=== PATIENT | male | born 2000 | race Caucasian/White ===

== ENCOUNTER 2018-12-10 19:45 | Emergency (ER) | payer SELFPAY ==
[~2018-12-10] VITALS: Ht 188 cm; Wt 86.2 kg
[~2018-12-10 19:45] MED LIST: ACET1TAB43 PO; AGM875T PO; DEXT5SYR7 PO; LISD70CA3 PO; LORA10CA PO; METH4TAB PO; SODI88SP5 NS
--- OUTSIDE RECORDS SUMMARY | 2018-12-10 19:50 | XMS REPORT | Continuity of Care Document ---
Author Organization Unknown Address Unknown Allergies There is no data. Medications There is no data. Problems Date Dx Coded Attending Type Code Diagnosis Diagnosed By 05/19/2008 ISELA CR DDS N V58.69 MEDICATION HIGH RISK 05/19/2008 V58.69 MEDICATION HIGH RISK 06/03/2008 ISELA CR DDS N 788.1 DYSURIA 06/03/2008 788.1 DYSURIA 06/08/2008 ISELA CR DDS N 388.70 earache 06/08/2008 388.70 earache 07/07/2008 ISELA CR DDS N 296.80 MO BIPOLAR NOS 07/07/2008 296.80 MO BIPOLAR NOS 10/13/2008 ISELA RC DDS N 382.00 OTITIS MEDIA ACUTE SUPPURATIVE RIGHT EAR 10/13/2008 ISELA CR DDS N 461.9 SINUSITIS ACUTE 10/13/2008 ISELA CR DDS N 477.9 ALLERGIC RHINITIS 10/13/2008 382.00 OTITIS MEDIA ACUTE SUPPURATIVE RIGHT EAR 10/13/2008 461.9 SINUSITIS ACUTE 10/13/2008 477.9 ALLERGIC RHINITIS 11/12/2008 ISELA CR DDS N 564.00 CONSTIPATION CHRONIC 11/12/2008 ISELA CR DDS N 565.0 ANAL FISSURE 11/12/2008 564.00 CONSTIPATION CHRONIC 11/12/2008 565.0 ANAL FISSURE 12/31/2008 ISELA CR DDS N 465.9 UPPER RESPIRATORY INFECTION ACUTE 12/31/2008 ISELA CR DDS N 493.90 ASTHMA 12/31/2008 465.9 UPPER RESPIRATORY INFECTION ACUTE 12/31/2008 493.90 ASTHMA 02/07/2009 ISELA CR DDS N 922.2 CONTUSION WITH INTACT SKIN SURFACE - GROIN RIGHT 02/07/2009 922.2 CONTUSION WITH INTACT SKIN SURFACE - GROIN RIGHT 03/31/2009 ISELA CR DDS N V06.5 DT, TETANUS-DIPHTHERIA [Td] 03/31/2009 V06.5 DT, TETANUS- DIPHTHERIA [Td] 07/12/2009 ISELA CR DDS N 845.00 ANKLE SPRAIN LEFT 07/12/2009 845.00 ANKLE SPRAIN LEFT 12/03/2009 ISELA CR DDS N 132.0 LICE HEAD 12/03/2009 132.0 LICE HEAD 03/07/2010 ISELA CR DDS N 380.10 OTITIS EXTERNA 03/07/2010 380.10 OTITIS EXTERNA 03/14/2010 ISELA CR DDS N 314.01 ADHD COMBINED 03/14/2010 ISELA CR DDS N V20.2 WELL CHILD, ROUTINE 03/14/2010 314.01 ADHD COMBINED 03/14/2010 V20.2 WELL CHILD, ROUTINE 05/17/2010 ISELA CR DDS N 313.81 CD OPPOSITIONAL DEFIANT 05/17/2010 313.81 CD OPPOSITIONAL DEFIANT 07/07/2010 ISELA CR DDS N 110.5 DERMATOPHYTOSIS OF THE BODY 07/07/2010 110.5 DERMATOPHYTOSIS OF THE BODY 07/22/2010 ISELA CR DDS N V70.3 SPORTS/SCHOOL EXAM 07/22/2010 V70.3 SPORTS/SCHOOL EXAM 01/04/2012 ISELA CR DDS N 300.3 AN OBCESS COMP DIS 01/04/2012 300.3 AN OBCESS COMP DIS 07/18/2012 ISELA CR DDS N 719.46 KNEE PAIN 07/18/2012 ISELA CR DDS N 786.2 COUGH 07/18/2012 719.46 KNEE PAIN 07/18/2012 786.2 COUGH Procedures There is no data. Results There is no data. Encounters ACCT No. Visit Date/Time Discharge Status Pt. Type Provider Facility Loc./Unit Complaint [id number] 09/11/2012 13:02:00 09/11/2012 23:59:59 C[facility] Outpatient ISELA CR DDS [id number] 07/18/2012 13:10:00 07/18/2012 23:59:59 [facility] Outpatient
--- OUTSIDE RECORDS SUMMARY | 2018-12-10 19:50 | XMS REPORT ---
Author Author Migration, Doctor Organization [facility] Address Unknown Phone Unavailable Care Team Providers Care Search Engine Optimization Analyst Name Role Phone Migration, Doctor Unavailable Unavailable PROBLEMS Type Condition ICD9-CM Code [id number] Code Onset Dates Condition Status SNOMED Code Problem Pain in joint, lower leg 719.46 Active 826210665 Problem Obsessive-compulsive disorders 300.3 Active 803412088 Problem Cough 786.2 Active 70876728 ALLERGIES No Information ENCOUNTERS Encounter Location Date Diagnosis [facility] [id number] [place] [address] Jul, Encounter for immunization Z23 [facility] [id number] [place] [address] Dec, [facility] [id number] [place] [address] Dec, [facility] [id number] [place] [address] 4318 Oct, [facility] [id number] [place] [address] Oct, [facility] [id number] [place] [address] Oct, [facility] [id number] [place] [address] 9[address] Oct, [facility] [id number] [place] [address]- 4645 Sep, [facility] [id number] [place] [address] 3[address] Sep, [facility] [id number] [place] [address] 1330 Sep, [facility] [address] [place] [address] Sep, [facility] [address] [id number] [place] [address] Apr, [facility] [place] [facility] [address] [id number] [place] [address] Apr, [facility] [place] [facility] [address] [id number] [place] [address] 4[address] Jan, [facility] [place] [facility] [address] [id number] [place] [address] 65[address] Jan, [facility] [place] [facility] [address] [id number] [place] [address] Jul, [facility] [place] [facility] [address] [id number] [place] [address] 49[address] Jul, [facility] [address] [id number] [place] [address] 0104 Dec, [facility] [place] [facility] [address] [id number] [place] [address] Sep, [facility] [place] [facility] [address] [id number] [place] [address] 9309 Jul, [facility] [place] [facility] [address] [id number] [place] [address] 275[address] Jul, [facility] [place] [facility] [address] [id number] [place] [address]151 Mar, [facility] [place] [facility] [address] [id number] [place] [address] 1635 December, [facility] [place] [facility] [address] [id number] [place] [address] 1149 Dec, [facility] [place] [facility] [address] [id number] [place] [address]- 1665 15 Oct, 2010 [facility] [place] [facility] [address] [id number] [place] [address] 6[address] Aug, [facility] [place] [facility] [address] [id number] [place] [address] 8[address] 20 Jul, 2010 [facility] [address] [id number] [place] [address] 3464 05 Jul, 2010 [facility] [address] [id number] [place] [address] 4225 13 Mar, 2010 [facility] [address] [id number] [place] [address] 2717 10 Jul, 2009 [facility] [address] [id number] [place] [address]- 5707 10 Jul, 2009 [facility] [address] [id number] [place] [address]- 3527 13 Oct, 2008 [facility] [address] [id number] [place] [address] 5939 Oct, [facility] [address] [id number] [place] [address]69 Oct, [facility] [address] [id number] [place] [address] 5[address] Jul, [facility] [address] [id number], [place] [address] 17 May, 2008 [facility] [address] [id number] [place] [address] 2855 December, [facility] [address] [id number], [place] [address] 13 Jul, 2007 [facility] [place] [facility] [address] [id number] [place] [address]- 4239 14 Aug, 2006 [facility] [place] [facility] [address] [id number] [place] [address]- 9157 17 Jun, 2005 [facility] [place] [facility] [address] [id number], [place] [address] 8648 13 Dec, 2004 [facility] [place] [facility] [address] [id number], [place] [address] Oct, [facility] [address] [facility] [id number] [place] [address]- [address] Sep, [facility] [address] [facility] [id number] [place] [address] Aug, IMMUNIZATIONS No Known Immunizations SOCIAL HISTORY Never Assessed REASON FOR VISIT EMR-[facility] PLAN OF CARE VITAL SIGNS MEDICATIONS Medication Instructions Dosage Frequency Start Date End Date Duration Status Ulesfia 5 % 1 tad by Topical route 1 time per week for 2 dose(s) Mar Active RESULTS No Results PROCEDURES No Known procedures INSTRUCTIONS MEDICATIONS ADMINISTERED No Known Medications
--- OUTSIDE RECORDS SUMMARY | 2018-12-10 19:50 | XMS REPORT ---
Author Author SAGRARIO SMILEY Organization [employer] Address Unknown Phone Unavailable Care Team Providers Care Margarine Maker Name Role Phone SAGRARIO SMILEY CP Unavailable Allergies No Known Allergies Problems Problem Type Condition Code Onset Dates Condition Status Problem Cough 786.2 Active Problem Pain in joint, lower leg 719.46 Active Problem Obsessive-compulsive disorders 300.3 Active Assessment Encounter for immunization Z23 Active Medications No Known Medications Procedures Procedure Coding System Code Date VARICELLA CPT-4 56745 Jul 26, 2015 SINGLE IMMUNIZATION ADMIN CPT-4 81957 Jul 26, 2015 MENINGOCOCCAL (MENVEO) CPT-4 14702 Jul 26, 2015 IMMUNIZATION ADMIN, EACH ADD (please include units) CPT-4 24942 Jul 26, 2015 Results No Known Results Immunizations Vaccine Administration Date MENINGOCOCCAL (MENVEO) Jul 26, 2015 VARICELLA Jul 26, 2015 Summary Purpose [employer] Submission
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
[2018-12-10 20:10] VITALS: BP 137/82
--- NOTE | 2018-12-10 20:29 | Diagnostic Imaging Report ---
INDICATION: Fell, right wrist pain FINDINGS: 3 views of the right wrist demonstrate normal ossification. No fracture or dislocation is present. IMPRESSION: Normal right wrist. Dictated by: Dictated on workstation # [id number]
== END 2018-12-10 20:10 | disposition home or self-care (01) ==
LOC: EDUNIT# 19:45 → ER 19:46
DX: S63.501A Unspecified sprain of right wrist, initial encounter (principal); W18.30XA Fall on same level, unspecified, initial encounter; Y93.72 Activity, wrestling
CPT/HCPCS: 73110; 99282

== ENCOUNTER 2019-11-03 22:38 | Emergency (ER) | payer SELFPAY ==
[~2019-11-03] VITALS: Ht 187.9 cm; Wt 95.2 kg
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
[2019-11-03 23:45] VITALS: BP 142/85
--- OUTSIDE RECORDS SUMMARY | 2019-11-09 05:11 | XMS REPORT ---
Author Author Eliot CANDELARIO [facility] Address [address] [place] [address] Care Team Providers Care Oxyacetylene Cutter Name Role Phone ANDREEANTONIAAN Unavailable PROBLEMS Type Condition ICD9-CM Code [id number] Code Onset Dates Condition S tatus SNOMED Code Problem Pain in joint, lower leg 719.46 Activ e 567441472 Problem Obsessive-compulsive disorders 300.3 Active 825763132 Problem Cough 786.2 Active 23343952 ALLERGIES No Information ENCOUNTERS Encounter Location Date Diagnosis [facility] [address] [address] Jul, Encounter for immunization Z23 [facility] [address] [address] Dec, [facility] [address] [address] Dec, [facility] [address] [address] Oct, [facility] [address] [address] Oct, [facility] [address] [address] Oct, [facility] [address] [address] Oct, [facility] [address] [address] Sep, [facility] [address] [address] Sep, [facility] [address] [address] Sep, [facility] [place] [facility] [address] [id number] [place] [address] Sep, [facility] [place] [facility] [address] [id number] [place] [address] Apr, [facility] [place] [facility] [address] [id number] [place] [address] Apr, [facility] [place] [facility] [id number] [place] [address] Jan, [facility] [place] [facility] [address] [id number] [place] [address] Jan, [facility] [place] [facility] [address] [id number] [place] [address] Jul, [facility] [place] [facility] [address] [id number] [place] [address] Jul, [facility] [place] [facility] [address] [id number] [place] [address] Dec, [facility] [place] [facility] [address] [id number] [place] [address] Sep, [facility] [place] [facility] [address] [id number] [place] [address] Jul, [facility] [place] [facility] [id number] [place] [address] Jul, [facility] [place] [facility] [address] [id number] [place] [address] Mar, [facility] [place] [facility] [address] [id number] [place] [address] December, [facility] [place] [facility] [address] [id number] [place] [address] Dec, [facility] [place] [facility] [id number] [place] [address] Oct, [facility] [place] [facility] [address] [id number] [place] [address] Aug, [facility] [place] [facility] [address] [id number] [place] [address] 20 Jul, 2010 [facility] [address] [id number] [place] [address] 05 Jul, 2010 [facility] [place] [facility] [address] [id number] [place] [address] 13 Mar, 2010 [facility] [place] [facility] [address] [id number] [place] [address] 10 Jul, 2009 [facility] [place] [facility] [address] [id number] [place] [address] 10 Jul, 2009 [facility] [place] [facility] [address] [id number] [place] [address] 13 Oct, 2008 [facility] [place] [facility] [address] [id number] [place] [address] 12 Oct, 2008 [facility] [place] [facility] [address] [id number] [place] [address] Oct, [facility] [place] [facility] [address] [id number] [place] [address] 05 Jul, 2008 [facility] [place] [facility] [address] [id number] [place] [address] 17 May, 2008 [facility] [place] [facility] [address] [id number] [place] [address] December, [facility] [place] [facility] [address] [id number] [place] [address] 13 Jul, 2007 [facility] [place] [facility] [address] [id number] [place] [address] 14 Aug, 2006 [facility] [place] [facility] [address] [id number] [place] [address] 17 Jun, 2005 [facility] [place] [facility] [address] [id number] [place] [address] 13 Dec, 2004 [facility] [place] [facility] [address] [id number] [place] [address] 15 Oct, 2004 [facility] [place] [facility] [address] [id number] [place] [address] 13 Sep, 2004 [facility] [place] [facility] [address] [id number] [place] [address] 16 Aug, 2004 IMMUNIZATIONS No Known Immunizations SOCIAL HISTORY Never Assessed REASON FOR VISIT PLAN OF CARE VITAL SIGNS MEDICATIONS Unknown Medications RESULTS No Results PROCEDURES No Known procedures INSTRUCTIONS MEDICATIONS ADMINISTERED No Known Medications
--- OUTSIDE RECORDS SUMMARY | 2019-11-09 05:12 | XMS REPORT ---
Author Author Eliot CANDELARIO [facility] Address [address] [place] [address] Care Team Providers Care Retail Personal Banker Name Role Phone ANDREEANTONIAAN Unavailable PROBLEMS Type Condition ICD9-CM Code [id number] Code Onset Dates Condition S tatus SNOMED Code Problem Pain in joint, lower leg 719.46 Activ e 386604281 Problem Obsessive-compulsive disorders 300.3 Active 808294680 Problem Cough 786.2 Active [id number] ALLERGIES No Information ENCOUNTERS Encounter Location Date Diagnosis [facility] [address] [facility] [id number] [address] [place] [phone] Jul, Encounter for immunization Z 23 [facility] [address] [id number] [address] [place] [address] Dec, [facility] [address] [id number] [address] [place] [phone] Dec, [facility] [address] [facility] [id number] [address] [place] [address] Oct, [facility] [address] [facility] [id number] [address] [place] [address] Oct, [facility] [address] [id number] [address] [place] [address] Oct, [facility] [address] [id number] [address] [place] [phone] Oct, [facility] [address] [facility] [id number] [address] [place] [phone] Sep, [facility] [address] [facility] [id number] [address] [place] [address] Sep, [facility] [address] [id number] [address] [place] [address], [place] [address] Sep, [facility] [address] [id number] [address] [place] [address], [place] [address] Sep, [facility] [address] [id number] [address] [place] [address], [place] [address] Apr, [facility] [address] [id number] [address] [place] [address], [place] [address] Apr, [facility] [address] [id number] [address] [place] [address], [place] [address] Jan, [facility] [address] [id number] [address] [place] [address], [place] [address] Jan, [facility] [address] [id number] [address] [place] [address], [place] [address] Jul, [facility] [address] [id number] [address] [place] [address], [place] [address] Jul, [facility] [address] [id number] [address] [place] [address], [place] [address] Dec, [facility] [address] [id number] [address] [place] [address], [place] [address] Sep, [facility] [address] [id number] [address] [place] [address], [place] [address] Jul, [facility] [address] [id number] [address] [place] [address], [place] [address] Jul, [facility] [address] [id number] [address] [place] [address], [place] [address] Mar, [facility] [address] [id number] [address] [place] [address], [place] [address] December, [facility] [address] [id number] [address] [place] [address], [place] [address] Dec, [facility] [address] [id number] [address] [place] [address], [place] [address] Oct, [facility] [address] [id number] [address] [place] [address], [place] [address] 07 Aug, 2010 [facility] [address] [id number] [address] [place] [address], [place] [address] 20 Jul, 2010 [facility] [address] [id number] [address] [place] [address], [place] [address] 05 Jul, 2010 [facility] [address] [id number] [address] [place] [address], [place] [address] 13 Mar, 2010 [facility] [address] [id number] [address] [place] [address], [place] [address] 10 Jul, 2009 [facility] [address] [id number] [address] [place] [address], [place] [address] 10 Jul, 2009 [facility] [address] [id number] [address] [place] [address], [place] [address] 13 Oct, 2008 [facility] [address] [id number] [address] [place] [address], [place] [address] Oct, [facility] [address] [id number] [address] [place] [address], [place] [address] Oct, [facility] [address] [id number] [address] [place] [address], [place] [address] 05 Jul, 2008 [facility] [address] [id number] [address] [place] [address], [place] [address] 17 May, 2008 [facility] [address] [id number] [address] [place] [address], [place] [address] December, [facility] [address] [id number] [address] [place] [address], [place] [address] 13 Jul, 2007 [facility] [address] [id number] [address] [place] [address], [place] [address] 14 Aug, 2006 [facility] [address] [id number] [address] [place] [address], [place] [address] 17 Jun, 2005 [facility] [address] [id number] [place] [address] 13 Dec, 2004 [facility] [address] [facility] [id number] [address] [place] [address] 15 Oct, 2004 [facility] [address] [facility] [id number] [address] [place] [address] 13 Sep, 2004 [facility] [address] [facility] [id number] [address] [place] [address] 16 Aug, 2004 IMMUNIZATIONS No Known Immunizations SOCIAL HISTORY Never Assessed REASON FOR VISIT PLAN OF CARE VITAL SIGNS MEDICATIONS Unknown Medications RESULTS No Results PROCEDURES No Known procedures INSTRUCTIONS MEDICATIONS ADMINISTERED No Known Medications
--- OUTSIDE RECORDS SUMMARY | 2019-11-09 05:12 | XMS REPORT ---
Author Author Eliot Perez [facility] Address [address] [place] [address] Care Team Providers Care Parts Fabricator Name Role Phone SARGARIO Perez Unavailable PROBLEMS Type Condition ICD9-CM Code [id number] Code Onset Dates Condition S tatus SNOMED Code Problem Pain in joint, lower leg 719.46 Activ e 669473889 Problem Obsessive-compulsive disorders 300.3 Active 497508298 Problem Cough 786.2 Active 78068173 ALLERGIES No Information ENCOUNTERS Encounter Location Date Diagnosis [facility] [id number] [place] [address] Jul, Encounter for immunization Z 23 [facility] [address] [facility] [id number] [address] [place] [address] 14 Dec, 2014 [facility] [address] [facility] [id number] [address] [place] [address] Dec, [facility] [address] [place] [address] Oct, [facility] [address] [place] [address] Oct, [facility] [address] [place] [id number] [address] [place] [address] Oct, [facility] [address] [facility] [id number] [address] [place] [address] Oct, [facility] [address] [place] [id number] [address] [place] [address] Sep, [facility] [address] [place] [id number] [address] [place] [address] Sep, [facility] [address] [id number] [address] [place] [address], [place] [address] Sep, [facility] [address] [id number] [address] [place] [address], [place] [address] Sep, [facility] [address] [id number] [address] [place] [address], [place] [address] Apr, [facility] [address] [id number] [address] [place] [address], [place] [address] Apr, [facility] [address] [id number] [address] [place] [address], [place] [address] Jan, [facility] [address] [id number] [address] [place] [address], [place] [address] Jan, [facility] [address] [id number] [address] [place] [address], [place] [address] Jul, [facility] [address] [id number] [address] [place] [address], [place] [address] Jul, [facility] [address] [id number] [address] [place] [address], [place] [address] Dec, [facility] [address] [id number] [address] [place] [address], [place] [address] Sep, [facility] [address] [id number] [address] [place] [address], [place] [address] Jul, [facility] [address] [id number] [address] [place] [address], [place] [address] Jul, [facility] [address] [id number] [address] [place] [address], [place] [address] Mar, [facility] [address] [id number] [address] [place] [address], [place] [address] December, [facility] [address] [id number] [address] [place] [address], [place] [address] Dec, [facility] [address] [id number] [address] [place] [address], [place] [address] 15 Oct, 2010 [facility] [address] [id number] [address] [place] [address], [place] [address] 07 Aug, 2010 [facility] [address] [id number] [address] [place] [address], [place] [address] 20 Jul, 2010 [facility] [address] [id number] [address] [place] [address], [place] [address] 05 Jul, 2010 [facility] [address] [id number] [address] [place] [address], [place] [address] 13 Mar, 2010 [facility] [address] [id number] [address] [place] [address], [place] [address] 10 Jul, 2009 [facility] [address] [id number] [address] [place] [address], [place] [address] 10 Jul, 2009 [facility] [address] [id number] [address] [place] [address], [place] [address] 13 Oct, 2008 [facility] [address] [id number] [address] [place] [address] 12 Oct, 2008 [facility] [address] [id number] [address] [place] [address], [place] [address] 11 Oct, 2008 [facility] [address] [id number] [address] [place] [address] 05 Jul, 2008 [facility] [address] [id number] [address] [place] [address], [place] [address] 17 May, 2008 [facility] [address] [id number] [address] [place] [address] December, [facility] [address] [id number] [address] [place] [address], [place] [address] 13 Jul, 2007 [facility] [address] [id number] [address] [place] [address] 14 Aug, 2006 [facility] [address] [id number] [address] [place] [address], [place] [address] 17 Jun, 2005 [facility] [address] [id number] [address] [place] [address] 13 Dec, 2004 [facility] [address] [facility] [id number] [address] [place] [address] 15 Oct, 2004 [facility] [address] [facility] [id number] [address] [place] [address] Sep, [facility] [address] [facility] [id number] [address] [place] [address] Aug, IMMUNIZATIONS No Known Immunizations SOCIAL HISTORY Never Assessed REASON FOR VISIT PLAN OF CARE VITAL SIGNS Height 70 in 2014-11-03 Weight 171 lbs 2014-11-03 Temperature 98 degrees Fahrenheit 2014-11-03 Heart Rate 92 bpm 2014-11-03 Respiratory Rate 22 2014-11-03 Blood pressure systolic 118 mmHg 2014-11-03 Blood pressure diastolic 74 mmHg 2014-11-03 MEDICATIONS Unknown Medications RESULTS No Results PROCEDURES No Known procedures INSTRUCTIONS MEDICATIONS ADMINISTERED No Known Medications
--- OUTSIDE RECORDS SUMMARY | 2019-11-09 05:12 | XMS REPORT | Continuity of Care Document ---
Author Organization Unknown Address Unknown Phone Unavailable Allergies There is no data. Medications There is no data. Problems Date Dx Coded Attending Type Code Diagnosis Diagnosed By 05/19/2008 ISELA CR DDS V58.69 MEDICATION HIGH RISK 05/19/2008 V58.69 MED ICATION HIGH RISK 06/03/2008 ISELA CR DDS N 788.1 DYSURIA 06/03/2008 788.1 DYSURIA 06/08/2008 ISELA CR DDS N 388.70 earache 06/08/2008 388.70 earache 07/07/2008 ISELA CR DDS N 296.80 MO BIPOLAR NOS 07/07/2008 296.80 MO BIPOLAR NOS 10/13/2008 ISELA CR DDS N 382.00 OTITIS MEDIA ACUTE SUPPURATIVE RIGHT EAR 10/13/2008 ISELA CR DDS N 461.9 SINUSITIS ACUTE 10/13/2008 ISELA CR DDS N 477.9 ALLERGIC RHINITIS 10/13/2008 382.00 TREV TIS MEDIA ACUTE SUPPURATIVE RIGHT EAR 10/13/2008 461.9 SINU SITIS ACUTE 10/13/2008 477.9 ALEXEY RGIC RHINITIS 11/12/2008 ISE[facility] CR DDS N 564.00 CONSTIPATION CHRONIC 11/12/2008 ISELA CR DDS N 565.0 ANAL FISSURE 11/12/2008 564.00 CON STIPATION CHRONIC 11/12/2008 565.0 ANAL FISSURE 12/31/2008 ISE[facility] CR DDS N 465.9 UPPER RESPIRATORY INFECTION ACUTE 12/31/2008 ISE[facility] CR DDS N 493.90 ASTHMA 12/31/2008 465.9 UPPE R RESPIRATORY INFECTION ACUTE 12/31/2008 493.90 ASTHMA 02/07/2009 ISELA CR DDS N 922.2 CONTUSION WITH INTACT SKIN SURFACE - GROIN RIGHT 02/07/2009 922.2 CONT USION WITH INTACT SKIN SURFACE - GROIN RIGHT 03/31/2009 ISELA CR DDS N V06.5 DT, TETANUS-DIPHTHERIA [Td] 03/31/2009 V06.5 DT, TETANUS- DIPHTHERIA [Td] 07/12/2009 I[facility] CR DDS N 845.00 ANKLE SPRAIN LEFT 07/12/2009 845.00 ANK LE SPRAIN LEFT 12/03/2009 I[facility] CR DDS N 132.0 LICE HEAD 12/03/2009 132.0 LICE HEAD 03/07/2010 ISE[facility] CR DDS N 380.10 OTITIS EXTERNA 03/07/2010 380.10 TREV TIS EXTERNA 03/14/2010 ISE[facility] CR DDS N 314.01 ADHD COMBINED 03/14/2010 ISE[facility] CR DDS N V20.2 WELL CHILD, ROUTINE 03/14/2010 314.01 ADH D COMBINED 03/14/2010 V20.2 WELL CHILD, ROUTINE 05/17/2010 ISE[facility] CR DDS N 313.81 CD OPPOSITIONAL DEFIANT 05/17/2010 313.81 CD OPPOSITIONAL DEFIANT 07/07/2010 ISE[facility] CR DDS N 110.5 DERMATOPHYTOSIS OF THE BODY 07/07/2010 110.5 DERM ATOPHYTOSIS OF THE BODY 07/22/2010 ISE[facility] CR DDS V70.3 SPORTS/SCHOOL EXAM 07/22/2010 V70.3 SPOR TS/SCHOOL EXAM 01/04/2012 ISE[facility] CR DDS N 300.3 AN OBCESS COMP DIS 01/04/2012 300.3 AN O BCESS COMP DIS 07/18/2012 ISELA CR DDS 719.46 KNEE PAIN 07/18/2012 ISELA CR DDS 786.2 COUGH 07/18/2012 719.46 KNE E PAIN 07/18/2012 786.2 COUGH Procedures There is no data. Results There is no data. Encounters ACCT No. Visit Date/Time Discharge Status Pt. Type Provider Facility Loc./Unit Complaint [id number] 09/11/2012 13:02:00 09/11/2012 23:59: 59 CLS Outpatient ISE[facility] CR DDS [id number] 07/18/2012 13:10:00 07/18/2012 23:59:5 9 CLS Outpatient
--- OUTSIDE RECORDS SUMMARY | 2019-11-09 05:12 | XMS REPORT ---
Author Author Eliot Marley Doctor Organization [facility] Address Unknown Phone Unavailable Care Team Providers Care Transmission Systems Operator Name Role Phone Migration, Doctor Unavailable Unavailable PROBLEMS Type Condition ICD9-CM Code [id number] Code Onset Dates Condition S tatus SNOMED Code Problem Pain in joint, lower leg 719.46 Activ e 044619887 Problem Obsessive-compulsive disorders 300.3 Active 664498702 Problem Cough 786.2 Active 23831246 ALLERGIES No Information ENCOUNTERS Encounter Location Date Diagnosis [facility] [address] [facility] [id number] [address] [place] [address] Jul, Encounter for immunization Z 23 [facility] [address] [facility] [id number] [address] [place] [address] Dec, [facility] [address] [facility] [id number] [address] [place] [address] Dec, [facility] [address] [facility] [id number] [address] [place] [address] Oct, [facility] [address] [place] [id number] [address] [place] [address] Oct, [facility] [address] [facility] [id number] [address] [place] [address] Oct, [facility] [address] [facility] [id number] [address] [place] [address] Oct, [facility] [address] [facility] [id number] [address] [place] [address] Sep, [facility] [address] [facility] [id number] [address] [place] [address] Sep, [facility] [address] [facility] [id number] [address] [place] [address] Sep, [facility] [address] [id number] [address] [place] [address], [place] [address] Sep, [facility] [address] [id number] [address] [place] [address], [place] [address] Apr, [facility] [address] [id number] [address] [place] [address], [place] [address] Apr, [facility] [address] [id number] [address] [place] [address], [place] [address] Jan, [facility] [address] [id number] [address] [place] [address], [place] [address] Jan, [facility] [address] [id number] [address] [place] [address], [place] [address] Jul, [facility] [address] [id number] [address] [place] [address], [place] [address] Jul, [facility] [address] [id number] [address] [place] [address], [place] [address] Dec, [facility] [address] [id number] [address] [place] [address], [place] [address] Sep, [facility] [address] [id number] [address] [place] [address], [place] [address] Jul, [facility] [address] [id number] [address] [place] [address], [place] [address] Jul, [facility] [address] [id number] [address] [place] [address], [place] [address] Mar, [facility] [address] [id number] [address] [place] [address], [place] [address] December, [facility] [address] [id number] [address] [place] [address], [place] [address] Dec, [facility] [address] [id number] [address] [place] [address], [place] [address] 15 Oct, 2010 [facility] [address] [id number] [address] [place] [address], [place] [address] Aug, [facility] [address] [id number] [address] [place] [address], [place] [address] 20 Jul, 2010 [facility] [address] [id number] [address] [place] [address], [place] [address] 05 Jul, 2010 [facility] [address] [id number] [address] [place] [address], [place] [address] 13 Mar, 2010 [facility] [address] [id number] [address] [place] [address], [place] [address] 10 Jul, 2009 [facility] [address] [id number] [address] [place] [address], [place] [address] 10 Jul, 2009 [facility] [address] [id number] [address] [place] [address], [place] [address] 13 Oct, 2008 [facility] [address] [id number] [address] [place] [address], [place] [address] Oct, [facility] [address] [id number] [address] [place] [id number] 11 Oct, 2008 [facility] [address] [id number] [address] [place] [address], [place] [address] Jul, [facility] [address] [id number] [address] [place] [id number] 17 May, 2008 [facility] [address] [id number] [address] [place] [address], [place] [address] December, [facility] [address] [id number] [address] [place] [id number] 13 Jul, 2007 [facility] [address] [id number] [address] [place] [address], [place] [address] 14 Aug, 2006 [facility] [address] [id number] [address] [place] [id number] 17 Jun, 2005 [facility] [address] [id number] [address] [place] [address], [place] [address] 13 Dec, 2004 [facility] [address] [id number] [address] [place] [id number] 15 Oct, 2004 [facility] [address] [facility] [id number] [address] [place] [id number] 13 Sep, 2004 [facility] [address] [facility] [id number] [address] [place] [id number] 16 Aug, 2004 IMMUNIZATIONS No Known Immunizations SOCIAL HISTORY Never Assessed REASON FOR VISIT EMR-[facility] [place] PLAN OF CARE VITAL SIGNS MEDICATIONS Unknown Medications RESULTS No Results PROCEDURES No Known procedures INSTRUCTIONS MEDICATIONS ADMINISTERED No Known Medications
--- OUTSIDE RECORDS SUMMARY | 2019-11-09 05:12 | XMS REPORT ---
Author Author Eliot Marley Doctor Organization [facility] Address Unknown Phone Unavailable Care Team Providers Care Desulfurizer Hand Name Role Phone Migration, Doctor Unavailable Unavailable PROBLEMS Type Condition ICD9-CM Code [id number] Code Onset Dates Condition S tatus SNOMED Code Problem Pain in joint, lower leg 719.46 Activ e 005332291 Problem Obsessive-compulsive disorders 300.3 Active 247708693 Problem Cough 786.2 Active [id number] ALLERGIES No Information ENCOUNTERS Encounter Location Date Diagnosis [facility] [address] [facility] [id number] [address] [place] [address] Jul, Encounter for immunization Z 23 [facility] [address] [facility] [id number] [address] [place] [id number] Dec, [facility] [address] [facility] [id number] [address] [place] [phone] Dec, [facility] [address] [facility] [id number] [address] [place] [address] Oct, [facility] [address] [place] [id number] [address] [place] [address] Oct, [facility] [address] [facility] [id number] [address] [place] [address] Oct, [facility] [address] [facility] [id number] [address] [place] [address] Oct, [facility] [address] [facility] [id number] [address] [place] [address] Sep, [facility] [address] [facility] [id number] [address] [place] [address] Sep, [facility] [address] [facility] [id number] [address] [place] [phone] Sep, [facility] [address] [id number] [address] [place] [address], [place] [address] Sep, [facility] [address] [id number] [address] [place] [address], [place] [address] Apr, [facility] [address] [id number] [address] [place] [address], [place] [address] Apr, [facility] [address] [id number] [address] [place] [address], [place] [address] Jan, [facility] [address] [id number] [address] [place] [address], [place] [address] Jan, [facility] [address] [id number] [address] [place] [address], [place] [address] Jul, [facility] [address] [id number] [address] [place] [address], [place] [address] Jul, [facility] [address] [id number] [address] [place] [address], [place] [address] Dec, [facility] [address] [id number] [address] [place] [address], [place] [address] Sep, [facility] [address] [id number] [address] [place] [address], [place] [address] Jul, [facility] [address] [id number] [address] [place] [address], [place] [address] Jul, [facility] [address] [id number] [address] [place] [address], [place] [address] Mar, [facility] [address] [id number] [address] [place] [address], [place] [address] December, [facility] [address] [id number] [address] [place] [address], [place] [address] Dec, [facility] [address] [id number] [address] [place] [address], [place] [address] 15 Oct, 2010 [facility] [address] [id number] [address] [place] [address], [place] [address] Aug, [facility] [address] [id number] [address] [place] [address], [place] [address] 20 Jul, 2010 [facility] [address] [id number] [address] [place] [address], [place] [address] 05 Jul, 2010 [facility] [address] [id number] [address] [place] [address], [place] [address] 13 Mar, 2010 [facility] [address] [id number] [address] [place] [address], [place] [address] 10 Jul, 2009 [facility] [address] [id number] [address] [place] [address], [place] [address] 10 Jul, 2009 [facility] [address] [id number] [address] [place] [address], [place] [address] 13 Oct, 2008 [facility] [address] [id number] [address] [place] [address], [place] [address] Oct, [facility] [address] [id number] [address] [place] [address] 11 Oct, 2008 [facility] [address] [id number] [address] [place] [address], [place] [address] Jul, [facility] [address] [id number] [address] [place] [address] 17 May, 2008 [facility] [address] [id number] [address] [place] [address], [place] [address] December, [facility] [address] [id number] [address] [place] [address] 13 Jul, 2007 [facility] [address] [id number] [address] [place] [address], [place] [address] 14 Aug, 2006 [facility] [address] [id number] [address] [place] [address] 17 Jun, 2005 [facility] [address] [id number] [address] [place] [address], [place] [address] 13 Dec, 2004 [facility] [address] [id number] [address] [place] [id number] 15 Oct, 2004 [facility] [address] [facility] [id number] [address] [place] [id number] 13 Sep, 2004 [facility] [address] [facility] [id number] [address] [place] [phone] 16 Aug, 2004 IMMUNIZATIONS No Known Immunizations SOCIAL HISTORY Never Assessed REASON FOR VISIT EMR-[facility] PLAN OF CARE VITAL SIGNS MEDICATIONS Unknown Medications RESULTS No Results PROCEDURES No Known procedures INSTRUCTIONS MEDICATIONS ADMINISTERED No Known Medications
--- OUTSIDE RECORDS SUMMARY | 2019-11-09 05:12 | XMS REPORT ---
Author Author Eliot CANDELARIO [facility] Address [address] [place] [address] Care Team Providers Care Field Mechanic/Site Lead Name Role Phone ANDREEANTONIAAN Unavailable PROBLEMS Type Condition ICD9-CM Code GEY86-NT Code Onset Dates Condition S tatus SNOMED Code Problem Pain in joint, lower leg 719.46 Activ e [id number] Problem Obsessive-compulsive disorders 300.3 Active [id number] Problem Cough 786.2 Active [id number] ALLERGIES No Information ENCOUNTERS Encounter Location Date Diagnosis [facility] [address] [facility] [id number] [address] [place] [address] Jul, Encounter for immunization Z 23 [facility] [address] [id number] [address] [place] [phone] Dec, [facility] [address] [id number] [address] [place] [phone] Dec, [facility] [address] [facility] [id number] [address] [place] [address] Oct, [facility] [address] [facility] [id number] [address] [place] [phone] Oct, [facility] [address] [id number] [address] [place] [phone] Oct, [facility] [address] [facility] [id number] [address] [place] [phone] Oct, [facility] [address] [facility] [id number] [address] [place] [phone] Sep, [facility] [address] [facility] [id number] [address] [place] [phone] Sep, [facility] [address] [id number] [address] [place] [address], [place] [address] Sep, [facility] [address] [id number] [address] [place] [address], [place] [address] Sep, [facility] [address] [id number] [address] [place] [address], [place] [address] Apr, [facility] [address] [id number] [address] [place] [address], [place] [address] Apr, [facility] [address] [id number] [address] [place] [address], [place] [address] Jan, [facility] [address] [id number] [address] [place] [address], [place] [address] Jan, [facility] [address] [id number] [address] [place] [address], [place] [address] Jul, [facility] [address] [id number] [address] [place] [address], [place] [address] Jul, [facility] [address] [id number] [address] [place] [address], [place] [address] Dec, [facility] [address] [id number] [address] [place] [address], [place] [address] Sep, [facility] [address] [id number] [address] [place] [address], [place] [address] Jul, [facility] [address] [id number] [address] [place] [address], [place] [address] Jul, [facility] [address] [id number] [address] [place] [address], [place] [address] Mar, [facility] [address] [id number] [address] [place] [address], [place] [address] December, [facility] [address] [id number] [address] [place] [address], [place] [address] Dec, [facility] [address] [id number] [address] [place] [address], [place] [address] Oct, [facility] [address] [id number] [address] [place] [address], [place] [address] 07 Aug, 2010 [facility] [address] [id number] [address] [place] [address], [place] [address] 20 Jul, 2010 [facility] [address] [id number] [address] [place] [address], [place] [address] 05 Jul, 2010 [facility] [address] [id number] [address] [place] [address], [place] [address] 13 Mar, 2010 [facility] [address] [id number] [address] [place] [address], [place] [address] 10 Jul, 2009 [facility] [address] [id number] [address] [place] [address], [place] [address] 10 Jul, 2009 [facility] [address] [id number] [address] [place] [address], [place] [address] 13 Oct, 2008 [facility] [address] [id number] [address] [place] [address], [place] [address] Oct, [facility] [address] [id number] [address] [place] [address], [place] [address] Oct, [facility] [address] [id number] [address] [place] [address], [place] [address] 05 Jul, 2008 [facility] [address] [id number] [address] [place] [address], [place] [address] 17 May, 2008 [facility] [address] [id number] [address] [place] [address], [place] [address] December, [facility] [address] [id number] [address] [place] [address], [place] [address] 13 Jul, 2007 [facility] [address] [id number] [address] [place] [address], [place] [address] 14 Aug, 2006 [facility] [address] [id number] [address] [place] [address], [place] [address] 17 Jun, 2005 [facility] [address] [id number] [place] [address] 13 Dec, 2004 [facility] [address] [facility] [id number] [address] [place] [address] 15 Oct, 2004 [facility] [address] [facility] [id number] [address] [place] [address] 13 Sep, 2004 [facility] [address] [facility] [id number] [address] [place] [address] 16 Aug, 2004 IMMUNIZATIONS No Known Immunizations SOCIAL HISTORY Never Assessed REASON FOR VISIT PLAN OF CARE VITAL SIGNS MEDICATIONS Unknown Medications RESULTS No Results PROCEDURES No Known procedures INSTRUCTIONS MEDICATIONS ADMINISTERED No Known Medications
== END 2019-11-03 23:45 | disposition home or self-care (01) ==
LOC: EDUNIT# 22:38 → ER 22:41
DX: S89.91XA Unspecified injury of right lower leg, initial encounter (principal); X50.1XXA Overexertion from prolonged static or awkward postures, initial encounter